=== PATIENT | male | born 2000 | race Caucasian/White ===

== ENCOUNTER 2020-05-28 13:38 | Emergency (ER) | payer OTHER, SELFPAY ==
[2020-05-28 14:01] VITALS: BP 135/95; PULSE 81; RESP 14; TEMP 36.4; O2SAT 99; BMI 28.3
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
[2020-05-28] MEDS: cephALEXin 500 mg Capsule PO (15:24)
[2020-05-28] MEDS: ketorolac 60 mg/2 mL INJ IM (15:25)
== END 2020-05-28 15:33 | disposition home or self-care (01) ==
PROVIDERS: Emergency Provider Physician Assistant; PCP Electrodiagnostic Medicine
DX: L24.5 Irritant contact dermatitis due to other chemical products (principal); L03.019 Cellulitis of unspecified finger
CPT/HCPCS: 12345; 96372; 99281; 99283; J1885

== ENCOUNTER 2020-06-09 11:49 | Outpatient (CLI) | payer OTHER, SELFPAY ==
--- NOTE | 2020-06-09 11:55 | XR_ITS ---
WS: [id number] Left hand, 3 views, 06/09/2020 Clinical Data: FINGER PAIN LEFT INDEX FINGER Comparison: Left fifth finger, 07/04/2012 Findings: No fractures or dislocations are seen. The soft tissues are unremarkable. The joint spaces are normal There is a small calcification which is anterior to the midportion of the second distal phalanx which could be a minimal avulsion. XR/XR hand LT min 3V* [id number] Impression: Small calcification anterior to the midportion of the second distal phalanx of the left hand which may represent a small avulsion or foreign body.
== END 2020-06-09 11:50 | disposition home or self-care (01) ==
LOC: RAD 11:52
PROVIDERS: PCP Electrodiagnostic Medicine; Visit Provider Nurse Practitioner Family
DX: M79.645 Pain in left finger(s) (principal)
CPT/HCPCS: 73130

== ENCOUNTER 2021-05-04 07:43 | Outpatient (CLI) | payer OTHER, SELFPAY ==
--- NOTE | 2021-05-04 08:00 | USCV_ITS ---
Sergo Pearson Age: 20 Gender: M : 2000 Exam Date: 05/04/2021 07:59 Ordering Phys: Hebert Hayward M.D ([email or web address]) Technologist: Mildred Dominguez [place] [facility] [place] A FIB BP: 120 / 80 HR: 56 Rhythm: Other Technical Quality: Adequate MEASUREMENTS (Male / Female) Normal Values 2D ECHO LV Diastolic Diameter PLAX 5.5 cm 4.2 - 5.9 / 3.9 - 5.3 cm LV Systolic Diameter PLAX 3.4 cm IVS Diastolic Thickness 1.0 cm 0.6 - 1.0 / 0.6 - 0.9 cm IVS Systolic Thickness 1.6 cm LVPW Diastolic Thickness 1.1 cm 0.6 - 1.0 / 0.6 - 0.9 cm LVPW Systolic Thickness 2.1 cm LVOT Diameter 2.0 cm LV Ejection Fraction 2D Teich 67.7 % LV Ejection Fraction MOD 2C 61.0 % LV Ejection Fraction 2C AL 60.6 % LA Diameter 3.2 cm LA Width 3.7 cm LA Height 3.7 cm RA Width 4.0 cm RA Height 4.8 cm Aorta at Sinotubular Diameter 2.4 cm M-MODE Aortic Annulus Diameter 3.2 cm LA Ao Ratio MM 1.1 MV E Point Septal Separation 1.1 cm DOPPLER AV Peak Velocity 87.0 cm/s LVOT Peak Velocity 78.0 cm/s AV Area Cont Eq vti 2.8 cm squared AV Area Cont Eq pk 2.8 cm squared MV Peak Velocity 100.0 cm/s MV Area PHT 4.6 cm squared Mitral E to A Ratio 1.6 MV E' Velocity 49.0 cm/s Mitral E to MV E' Ratio 6.5 Mitral E to LV E' Lateral Ratio 6.0 Mitral E to LV E' Septal Ratio 7.2 TR Peak Velocity 217.8 cm/s TR Peak Gradient 19.0 mmHg TR Mean Velocity 187.8 cm/s TR Mean Gradient 15.7 mmHg TR Velocity Time Integral 70.0 cm TV Peak E Velocity 65.0 cm/s Right Atrial Pressure 3.0 mmHg Pulmonary Artery Systolic Pressu 22.0 mmHg PV Peak Velocity 74.0 cm/s RV Acceleration Time 0.1 s RV Ejection Time 0.3 s RV AcT/ET 0.2 FINDINGS Left Ventricle Normal left ventricular size. LV systolic function is normal with EF of 55-60%. No regional wall motion abnormalities. Normal diastolic filling pattern. Right Ventricle The right ventricle is normal in size and function. Right Atrium The right atrium is normal in size. Left Atrium The left atrium is normal in size. Mitral Valve Structurally normal mitral valve without significant stenosis or prolapse. There is no mitral regurgitation. Aortic Valve Structurally normal aortic valve without significant sclerosis or stenosis. There is no aortic regurgitation. Tricuspid Valve Structurally normal tricuspid valve without significant stenosis or regurgitation. Insufficient TR jet to calculate RVSP Pulmonic Valve Structurally normal pulmonic valve without significant stenosis. There is trace pulmonic regurgitation. Pericardium Normal pericardium without effusion. Aorta Normal ascending aorta dimension. CONCLUSIONS LV systolic function is normal with EF of 55-60% Diastolic function is normal Trace pulmonic regurgitation No comparison studies are available Hebert Hayward MD (Electronically Signed) Final Date: 09 May 2021 14:20 S
== END 2021-05-04 07:44 | disposition home or self-care (01) ==
LOC: US 07:50
PROVIDERS: PCP Nurse Practitioner Family; Visit Provider Internal Medicine
DX: I48.91 Unspecified atrial fibrillation (principal); I37.1 Nonrheumatic pulmonary valve insufficiency
CPT/HCPCS: 93306

== ENCOUNTER 2024-01-08 11:02 | Outpatient (CLI) | payer BC, SELFPAY ==
--- NOTE | 2024-01-08 11:07 | XRR_ITS ---
PROCEDURE INFORMATION: Exam: XR Right Femur Exam date and time: 01/08/2024 11:15 AM Age: 23 years old Clinical indication: Pain; Thigh; Right; Additional info: R leg pain TECHNIQUE: Imaging protocol: Radiologic exam of the right femur. Views: 2 views. COMPARISON: CR XR hip RT 2-3V wo/w pel* [id number] 01/08/2024 11:15 AM FINDINGS: Bones/joints: Unremarkable. No acute fracture. No lytic or sclerotic bone lesion. No significant arthritic changes. Soft tissues: Unremarkable. XR/XR femur RT min 2V* [id number] IMPRESSION: No acute findings.
--- NOTE | 2024-01-08 11:07 | XRR_ITS ---
PROCEDURE INFORMATION: Exam: XR Right Hip Exam date and time: 01/08/2024 11:15 AM Age: 23 years old Clinical indication: Hip pain; Right hip; Additional info: R hip pain TECHNIQUE: Imaging protocol: Radiologic exam of the right hip. Views: 1 view hip with pelvis when performed. COMPARISON: CR XR femur RT min 2V* [id number] 01/08/2024 11:15 AM FINDINGS: Bone and joints: No fracture or dislocation is noted. Joint spaces relatively well preserved. Bony mineralization is normal. Soft tissues: Small benign-appearing ossification is seen within the lateral soft tissues. XR/XR hip RT 2-3V wo/w pel* [id number] IMPRESSION: No acute findings.
== END 2024-01-08 11:03 | disposition home or self-care (01) ==
LOC: RAD 11:05
PROVIDERS: PCP Nurse Practitioner Family; Visit Provider Nurse Practitioner Family
DX: M25.551 Pain in right hip (principal); M79.604 Pain in right leg; M79.89 Other specified soft tissue disorders
CPT/HCPCS: 73502; 73552

== ENCOUNTER → 2025-01-30 17:58 | Outpatient (BNVA) | payer SELFPAY | PROVIDERS: PCP Nurse Practitioner Family; Visit Provider Registered Nurse Neonatal Intensive Care | DX: J02.9 Acute pharyngitis, unspecified (principal) | CPT/HCPCS: 87880 ==

== ENCOUNTER 2025-04-13 21:51 | Emergency (ER) | payer OTHER, SELFPAY ==
[2025-04-13 21:52] VITALS: BP 152/95; PULSE 123; RESP 16; TEMP 36.9; O2SAT 94; BMI 27.7
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
[2025-04-13 22:34] VITALS: BP 152/96; PULSE 100; RESP 16; O2SAT 98
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
== END 2025-04-13 22:36 | disposition home or self-care (01) ==
PROVIDERS: Emergency Provider Student in an Organized Health Care Education/Training Program; PCP Nurse Practitioner Family
DX: S60.222A Contusion of left hand, initial encounter (principal); Y04.8XXA Assault by other bodily force, initial encounter
CPT/HCPCS: 73120; 99283

== ENCOUNTER → 2025-04-25 09:00 | Outpatient (BNVA) | payer OTHER, SELFPAY | PROVIDERS: PCP Nurse Practitioner Family; Visit Provider Specialist | DX: S62.317A Displaced fracture of base of fifth metacarpal bone, left hand, initial encounter for closed fracture (principal); S62.345A Nondisplaced fracture of base of fourth metacarpal bone, left hand, initial encounter for closed fracture; S62.343A Nondisplaced fracture of base of third metacarpal bone, left hand, initial encounter for closed fracture; X58.XXXA Exposure to other specified factors, initial encounter | CPT/HCPCS: 73130 ==

== ENCOUNTER 2025-04-25 10:16 | Outpatient (CLI) | payer OTHER, SELFPAY | END 2025-04-25 10:17 | disposition home or self-care (01) | LOC: SPT 10:16 | PROVIDERS: PCP Nurse Practitioner Family; Visit Provider Specialist | DX: Z46.89 Encounter for fitting and adjustment of other specified devices (principal); S62.347D Nondisplaced fracture of base of fifth metacarpal bone, left hand, subsequent encounter for fracture with routine healing; X58.XXXD Exposure to other specified factors, subsequent encounter | CPT/HCPCS: L3807 ==

== ENCOUNTER 2025-04-29 07:25 | Outpatient (CLI) | payer OTHER, SELFPAY ==
--- NOTE | 2025-04-29 07:30 | CT_ITS ---
WS: [id number] CT LEFT HAND, NONCONTRAST, 3D. HISTORY: fracture Technique: All CT scans at [facility] use at least one of these dose optimization techniques: automated exposure control; mA and/or kV adjustment per patient size (includes targeted exams where dose is matched to clinical indication); or iterative reconstruction. DLP: 120.08 mGy.cm COMPARISON: Radiograph 04/25/2025 Comminuted fracture involving the proximal fifth metacarpal with extension into the carpal metacarpal articulation. Fracture fragments are slightly displaced laterally by approximately 3.3 mm. There is impaction upon the articular surface of the hamate by the metacarpal fracture. No obvious fracture of the hamate although there is probably a contusion injury. On the axial imaging there is a very slight interruption of the cortex which may be a cortical injury of the hamate. This is at the site of impaction. Hook of the hamate remains intact. There is no dorsal displacement. Moderate amount of soft tissue edema along the medial hand at the level of the fifth metacarpal fracture. No additional metacarpal fractures or carpal bone fractures are identified. Carpal rows remain normally positioned and aligned. Distal radius and ulna are normal. CT/CT hand LT wo con* [id number] IMPRESSION: 1. Comminuted, intra-articular fracture involving the base of the fifth metaca rpal. Fracture fragments displaced 3.3 mm laterally. 2. Bony contact on the hamate from the fracture displacement. No apparent frac ture is identified. Contusion injury is likely. 3. Soft tissue edema along the medial hand at the metacarpal fracture site.
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
== END 2025-04-29 07:26 | disposition home or self-care (01) ==
LOC: RAD 07:26
PROVIDERS: PCP Nurse Practitioner Family; Visit Provider Specialist
DX: S62.313A Displaced fracture of base of third metacarpal bone, left hand, initial encounter for closed fracture (principal); S62.315A Displaced fracture of base of fourth metacarpal bone, left hand, initial encounter for closed fracture; S62.317A Displaced fracture of base of fifth metacarpal bone, left hand, initial encounter for closed fracture; X58.XXXA Exposure to other specified factors, initial encounter
CPT/HCPCS: 73200; 73218

== ENCOUNTER 2025-05-02 12:17 | Outpatient (CLI) | payer OTHER, SELFPAY | END 2025-05-02 12:18 | disposition home or self-care (01) | LOC: SPT 12:21 | PROVIDERS: PCP Nurse Practitioner Family; Visit Provider Nurse Practitioner | DX: Z46.89 Encounter for fitting and adjustment of other specified devices (principal); S62.327D Displaced fracture of shaft of fifth metacarpal bone, left hand, subsequent encounter for fracture with routine healing; X58.XXXD Exposure to other specified factors, subsequent encounter | CPT/HCPCS: L3984 ==

== ENCOUNTER → 2025-05-23 10:45 | Outpatient (BNVA) | payer OTHER, SELFPAY | PROVIDERS: PCP Nurse Practitioner Family; Visit Provider Specialist | DX: S62.317D Displaced fracture of base of fifth metacarpal bone, left hand, subsequent encounter for fracture with routine healing (principal); X58.XXXD Exposure to other specified factors, subsequent encounter | CPT/HCPCS: 73130 ==

== ENCOUNTER → 2025-06-06 10:07 | Outpatient (BNVA) | payer OTHER, SELFPAY | PROVIDERS: PCP Nurse Practitioner Family; Visit Provider Specialist | DX: S62.317D Displaced fracture of base of fifth metacarpal bone, left hand, subsequent encounter for fracture with routine healing (principal); X58.XXXD Exposure to other specified factors, subsequent encounter | CPT/HCPCS: 73130 ==